=== PATIENT | male | born 1990 | race Caucasian/White ===

== ENCOUNTER 2017-02-02 08:09 | Emergency (ER) | payer OTHER ==
[~2017-02-02] VITALS: Wt 124.7 kg
[~2017-02-02 08:09] MED LIST: ACIPHEX20 MG PO; AMOXICILLIN500 MG PO; AMOXIL500 MG PO; ANAPROX DS550 MG PO; ATARAX25 MG PO; CLARITIN10 MG PO; CORDROL20 MG PO; FLAGYL500 MG PO; FLEXERIL5 MG PO; FLOMAX0.4 MG PO; HYDROCODONE BIT1 T11 PO; KEFLEX500 M1 PO; KEFLEX500 MG PO; KETOROLAC10 MG PO; LEVAQUIN750 MG PO; LIDEX 0.05% CRE15 GM T; LIDEX0.05% T; MEDROL DOSEPAK4 MG PO; MOTRIN400 MG PO; MOTRIN800 MG PO; NKHM; NORCO 5-325 TA1 EACH PO; PEPCID20 MG PO; PREDNICOT20 MG PO; PREDNISONE20 M1 PO; PREDNISONE20 MG PO; ROBITUSSIN-AC 160 ML PO; TRAMADOL HCL50 MG PO; VIBRAMYCIN100 MG PO; VICODIN 500 MG-1 TAB PO; ZITHROMAX Z PA250 MG PO; ZOFRAN ODT4 MG SL; ZOFRAN4 MG PO; Zofran4 MG PO
[2017-02-02 08:13] VITALS: BP 132/60
[2017-02-02] MEDS ORDERED: Motrin,Rufen800 MG PO (09:26)
[2017-02-02] MEDS ORDERED: HYDROCODONE BIT1 T11 PO (09:26)
== END 2017-02-02 09:34 | disposition home or self-care (01) ==
LOC: ED 08:09
DX: S46.912A Strain of unspecified muscle, fascia and tendon at shoulder and upper arm level, left arm, initial encounter (principal); F17.200 Nicotine dependence, unspecified, uncomplicated; W22.8XXA Striking against or struck by other objects, initial encounter; Y93.89 Activity, other specified; Y92.89 Other specified places as the place of occurrence of the external cause; Y99.8 Other external cause status

== ENCOUNTER 2017-06-07 00:32 | Emergency (ER) | payer OTHER ==
[~2017-06-07] VITALS: Ht 172.7 cm; Wt 133.4 kg
[~2017-06-07 00:32] MED LIST changes: +Motrin,Rufen800 MG PO
[2017-06-07 00:39] VITALS: BP 145/86
[2017-06-07 01:06] LABS: BASO % 0.3 % (0.0-1.0); EOS # 0.4 10*3/uL (0.0-0.4); EOS % 3.5 % (1.0-4.0); HEMATOCRIT 39.8 % (42.0-52.0); HEMOGLOBIN 12.9 g/dl (14.0-18.0); MEAN CELL VOLUME 81.2 fl (80.0-94.0); MEAN CORPUSCULAR HGB 26.3 pg (27.0-31.0); MEAN CORPUSCULAR HGB CONC 32.4 g/dl (33.0-37.0); MEAN PLATELET VOLUME 9.7 fl (9.6-12.3); MONO % 7.9 % (3.0-9.0); NEUT # 7.6 10*3/uL (2.3-7.9); PLATELET COUNT AUTOMATED 257 10*3/uL (130-400); RED CELL DISTRI WIDTH 14.2 % (0-14.5); WHITE BLOOD COUNT 12.1 10*3/uL (4.8-10.8)
[2017-06-07 01:21] LABS: ALBUMIN 3.3 gm/dl (3.1-4.5); ALKALINE PHOSPHATASE 99 U/L (45-117); BILIRUBIN, TOTAL 0.2 mg/dl (0.2-1.0); BUN 9 mg/dl (7-24); C-REACTIVE PROTEIN 1.66 MG/DL (0-0.3); CARBON DIOXIDE 25 mmol/L (21-32); CHLORIDE 108 mmol/L (98-107); EST GLOM FILT AFRICAN AMERICAN > 60 ml/min; GLUCOSE 105 mg/dL (65-99); MAGNESIUM 1.9 mg/dL (1.5-2.1); POTASSIUM 3.4 mmol/L (3.5-5.1); SGOT/AST 13 IU/L (3-35); SGPT/ALT 19 U/L (12-78); SODIUM 141 mmol/L (136-145); TOTAL PROTEIN 7.2 gm/dL (6.4-8.2); TROPONIN I < 0.015 ng/ml (<0.045)
[2017-06-07] MEDS ORDERED: AMOXICILLIN500 M2 PO (03:22)
[2017-06-07] MEDS ORDERED: PRILOSEC20 M1 PO (03:22)
[2017-06-07] MEDS ORDERED: ZOFRAN ODT4 MG SL (03:22)
== END 2017-06-07 04:08 | disposition home or self-care (01) ==
LOC: ED 00:32
PROVIDERS: Emergency Medicine Emergency Medical Services
DX: K21.9 Gastro-esophageal reflux disease without esophagitis (principal); J02.9 Acute pharyngitis, unspecified; F17.200 Nicotine dependence, unspecified, uncomplicated; Z98.890 Other specified postprocedural states; Z90.49 Acquired absence of other specified parts of digestive tract

== ENCOUNTER 2017-06-11 21:55 | Emergency (ER) | payer OTHER ==
[~2017-06-11] VITALS: Ht 172.7 cm; Wt 126.6 kg
[~2017-06-11 21:55] MED LIST changes: +AMOXICILLIN500 M2 PO; +PRILOSEC20 M1 PO
[2017-06-11 21:59] VITALS: BP 135/68
[2017-06-11 22:29] LABS: BASO % 0.3 % (0.0-1.0); EOS # 0.3 10*3/uL (0.0-0.4); EOS % 2.4 % (1.0-4.0); HEMATOCRIT 41.1 % (42.0-52.0); HEMOGLOBIN 13.3 g/dl (14.0-18.0); LYMPH # 2.7 10*3/uL (1.3-4.4); LYMPH % 22.4 % (27.0-41.0); MEAN CELL VOLUME 81.1 fl (80.0-94.0); MEAN CORPUSCULAR HGB 26.2 pg (27.0-31.0); MEAN CORPUSCULAR HGB CONC 32.4 g/dl (33.0-37.0); MEAN PLATELET VOLUME 9.5 fl (9.6-12.3); MONO # 0.7 10*3/uL (0.1-1.0); MONO % 6.1 % (3.0-9.0); NEUT # 8.2 10*3/uL (2.3-7.9); NEUT % 68.6 % (47.0-73.0); PLATELET COUNT AUTOMATED 253 10*3/uL (130-400); RED BLOOD COUNT 5.07 10*6/uL (4.50-5.90); RED CELL DISTRI WIDTH 14.1 % (0-14.5)
== END 2017-06-12 00:17 | disposition home or self-care (01) ==
LOC: ED 21:55
PROVIDERS: Physician Assistant
DX: B34.9 Viral infection, unspecified (principal); K21.9 Gastro-esophageal reflux disease without esophagitis; R42 Dizziness and giddiness; F17.200 Nicotine dependence, unspecified, uncomplicated

== ENCOUNTER 2017-06-24 02:04 | Emergency (ER) | payer OTHER ==
[~2017-06-24] VITALS: Ht 172.7 cm; Wt 126.6 kg
[2017-06-24 02:11] VITALS: BP 153/75
[2017-06-24] MEDS ORDERED: AVPAK AZITHROM250 M1 PO (03:17)
== END 2017-06-24 03:32 | disposition home or self-care (01) ==
LOC: ED 02:04
DX: J06.9 Acute upper respiratory infection, unspecified (principal); K21.9 Gastro-esophageal reflux disease without esophagitis; F17.200 Nicotine dependence, unspecified, uncomplicated

== ENCOUNTER 2017-07-20 16:44 | Emergency (ER) | payer OTHER ==
[~2017-07-20] VITALS: Wt 122.0 kg
[~2017-07-20 16:44] MED LIST changes: +AVPAK AZITHROM250 M1 PO
[2017-07-20 16:50] VITALS: BP 126/62
[2017-07-20] MEDS ORDERED: PREDNISONE10 MG PO (16:52)
== END 2017-07-20 17:04 | disposition home or self-care (01) ==
LOC: ED 16:44
DX: L30.9 Dermatitis, unspecified (principal); R03.0 Elevated blood-pressure reading, without diagnosis of hypertension; K21.9 Gastro-esophageal reflux disease without esophagitis; F17.200 Nicotine dependence, unspecified, uncomplicated

== ENCOUNTER → 2017-07-27 | Outpatient (CLI) | payer OTHER ==
[~2017-07-27] MED LIST changes: +PREDNISONE10 MG PO
== END | disposition home or self-care (01) ==
LOC: CT 13:24
DX: K43.2 Incisional hernia without obstruction or gangrene (principal)

== ENCOUNTER → 2017-08-03 | Outpatient (CLI) | payer OTHER ==
[~2017-08-03] MED LIST changes: +LORCET 5-325 M1 EACH PO
[2017-08-03 09:29] LABS: BASO # 0.1 10*3/uL (0.0-0.1); BASO % 0.6 % (0.0-1.0); EOS # 0.4 10*3/uL (0.0-0.4); EOS % 4.4 % (1.0-4.0); HEMATOCRIT 41.6 % (42.0-52.0); HEMOGLOBIN 13.7 g/dl (14.0-18.0); LYMPH # 2.1 10*3/uL (1.3-4.4); LYMPH % 21.8 % (27.0-41.0); MEAN CELL VOLUME 80.2 fl (80.0-94.0); MEAN CORPUSCULAR HGB 26.4 pg (27.0-31.0); MEAN CORPUSCULAR HGB CONC 32.9 g/dl (33.0-37.0); MEAN PLATELET VOLUME 10.3 fl (9.6-12.3); MONO # 0.6 10*3/uL (0.1-1.0); MONO % 6.3 % (3.0-9.0); NEUT # 6.3 10*3/uL (2.3-7.9); NEUT % 66.5 % (47.0-73.0); PLATELET COUNT AUTOMATED 233 10*3/uL (130-400); RED BLOOD COUNT 5.19 10*6/uL (4.50-5.90); RED CELL DISTRI WIDTH 14.2 % (0-14.5); WHITE BLOOD COUNT 9.4 10*3/uL (4.8-10.8)
[2017-08-03 09:30] LABS: BILIRUBIN NEGATIVE (NEGATIVE); BLOOD NEGATIVE (NEGATIVE); CLARITY CLEAR (CLEAR); COLOR YELLOW (YELLOW); GLUCOSE NEGATIVE (NEGATIVE); KETONE NEGATIVE (NEGATIVE); LEUKO ESTERASE NEGATIVE (NEGATIVE); NITRITE NEGATIVE (NEGATIVE); SPECIFIC GRAVITY 1.025 (1.005-1.030)
[2017-08-03 09:47] LABS: MUCOUS 1+
[2017-08-03 09:48] LABS: EPITHELIAL CELLS 0-2; RBC 0-2 rbc/hpf (0-2); WBC 0-2 wbc/hpf (0-5)
[2017-08-03 09:54] LABS: BUN 12 mg/dl (7-24); CHLORIDE 106 mmol/L (98-107); CREATININE 1.07 mg/dL (0.70-1.30); POTASSIUM 3.8 mmol/L (3.5-5.1); SODIUM 140 mmol/L (136-145)
[2017-08-03 10:05] LABS: ACT PARTIAL THROMBO TIME 22.1 SECONDS (20.8-31.5)
== END | disposition home or self-care (01) ==
LOC: LAB 08:25
PROVIDERS: Family Medicine
DX: K43.9 Ventral hernia without obstruction or gangrene (principal); R79.1 Abnormal coagulation profile

== ENCOUNTER → 2017-08-09 | Day surgery (SDC) | payer OTHER ==
[~2017-08-09] VITALS: Ht 172.7 cm; Wt 134.7 kg
[2017-08-09] VITALS (9 sets, daily range): BP systolic 104–125; BP diastolic 50–67
[~2017-08-09] MED LIST changes: +PERCOCET 5-3251 EACH PO
--- NOTE | ~2017-08-09 | O ---
[place], [place] OPERATIVE NOTE NAME: STEPHANIE ERVIN [facility] #: [id number] UNIT #: [id number] ROOM: DOCTOR: DAVID GIBSON MD BIRTHDATE: [birth year] DOS: 08/09/2017 PREOPERATIVE DIAGNOSIS: Recurrent incisional hernia. POSTOPERATIVE DIAGNOSIS: Recurrent incisional hernia. PROCEDURE: Repair of recurrent incisional hernia with mesh (Prolene, 3 x 6 inches) SURGEON: David Gibson MD COATER: MS3. ANESTHESIA: GET. INDICATIONS: This is a 27-year-old gentleman with a history of recurrent ventral hernia, who is here for the above-mentioned procedure. The procedure and its complications explained to the patient in detail preoperatively. Complications that were discussed included but were not limited to bleeding, infection, hematoma/seroma/abscess formation, biloma formation, prolonged postoperative pain, damage to underlying vital structures and recurrence. He agreed to proceed. DESCRIPTION OF PROCEDURE: After identifying the patient, the patient was brought to the operating suite and laid in the supine position. After induction of general anesthesia, the parts were painted and draped in the usual sterile fashion and a timeout procedure was called. The previously placed midline incision was extended on each side. The hernial sac was entered and from the surrounding subcutaneous tissue with the help of blunt and sharp dissection. After the entire hernial sac was excised away from the edges of the fascia, the adhesions between the omentum and the fascia were taken down until the entire fascia was clear of adhesions. At this point, the fascial defect was approximated with the help of interrupted nylon #3 sutures. Thereafter, the fascia was from the overlying subcutaneous tissue with the help of electrocautery and a 3 x 6 mesh was placed over the repair and sutured to the fascia underlying the mesh with the help of 3-0 Prolene in an interrupted fashion. Thereafter, irrigation was used to irrigate the operative field. The subcutaneous tissue was approximated in 2 layers with the help of 0 Vicryl and 3-0 Vicryl in an interrupted fashion. The edges of the skin were infiltrated with 1% plain lidocaine and approximated with the help of edvni. Dressing was placed and a binder was placed over that. The patient tolerated the procedure well. There were no complications. Dr. David Gibson, the attending surgeon, was present throughout the operating case. The patient was extubated uneventfully and brought back to the recovery room in a stable fashion. [place], [place] OPERATIVE NOTE NAME: STEPHANIE ERVIN UNIT #: [id number] ROOM: DOCTOR: DAVID GIBSON MD BIRTHDATE: [birth year] David Gibson MD CM:OPRECORD:OPERATIVE NOTE [id number] DAVID GIBSON MD 08/09/17 1535 interface
== END | disposition home or self-care (01) ==
LOC: SDC 08-03 08:45
DX: K43.2 Incisional hernia without obstruction or gangrene (principal); I10 Essential (primary) hypertension; K21.9 Gastro-esophageal reflux disease without esophagitis; F17.210 Nicotine dependence, cigarettes, uncomplicated; Z98.890 Other specified postprocedural states

== ENCOUNTER 2017-08-10 08:39 | Inpatient (IN) | payer OTHER ==
[~2017-08-10] VITALS: Ht 172.7 cm; Wt 134.5 kg
[2017-08-10 08:42] VITALS: BP 123/67
[2017-08-10 09:12] LABS: HEMATOCRIT 42.5 % (42.0-52.0); HEMOGLOBIN 14.1 g/dl (14.0-18.0); MEAN CELL VOLUME 80.8 fl (80.0-94.0); MEAN CORPUSCULAR HGB 26.8 pg (27.0-31.0); MEAN CORPUSCULAR HGB CONC 33.2 g/dl (33.0-37.0); MEAN PLATELET VOLUME 9.6 fl (9.6-12.3); PLATELET COUNT AUTOMATED 384 10*3/uL (130-400); RED BLOOD COUNT 5.26 10*6/uL (4.50-5.90); RED CELL DISTRI WIDTH 14.1 % (0-14.5); WHITE BLOOD COUNT 26.6 10*3/uL (4.8-10.8)
[2017-08-10 09:31] LABS: PLATELET SUFFICIENCY NORMAL (NORMAL); TOTAL CELLS COUNTED 100 #CELLS
[2017-08-10 09:35] LABS: ALBUMIN 3.6 gm/dl (3.1-4.5); ALKALINE PHOSPHATASE 115 U/L (45-117); BUN 12 mg/dl (7-24); CHLORIDE 100 mmol/L (98-107); CREATININE 1.16 mg/dL (0.70-1.30); LIPASE 65 U/L (73-393); POTASSIUM 3.6 mmol/L (3.5-5.1); SGOT/AST 29 IU/L (3-35); SGPT/ALT 47 U/L (12-78); SODIUM 135 mmol/L (136-145); TOTAL PROTEIN 8.1 gm/dL (6.4-8.2)
--- NOTE | 2017-08-10 10:00 | NUR ---
Time: 999 A 27 year old MALE admitted to under services of DR. NALDO QUIROZ,MARII. Pt. arrived via ambulatory from ER. Chief complaint: PAIN AND NAUSEA S/P HERNIA REPAIR. GILBERTO LOZADA
--- NOTE | 2017-08-10 10:01 | NUR ---
PT STABLE AND TRANSPORTED TO INPATIENT ROOM WITHOUT DIFFICULTY.
[2017-08-10 10:09] VITALS: BP 150/96
--- NOTE | 2017-08-10 10:35 | NUR ---
PT REQUESTING SOMETHING TO DRINK, DR HITCHCOCK STATES OK FOR CLEAR LIQUIDS.
[2017-08-10 12:00] VITALS: BP 137/91
--- NOTE | 2017-08-10 12:00 | NUR ---
ABDOMINAL BINDER APPLIED AT THIS TIME. PT SURGICAL INCISION NOT VISUALIZED ON ADMISSION, THE ORDERS ARE NOT TO BE REMOVED UNTIL POD #2 WHICH WILL BE 08/11/17.
--- NOTE | 2017-08-10 12:28 | NUR ---
DR HITCHCOCK NOTIFIED OF CRITICAL LACTIC ACID OF 3.1.
--- NOTE | 2017-08-10 13:40 | NUR ---
DR HITCHCOCK NOTIFIED OF PT'S CONTINUED NAUSEA DESPITE REGLAN, ORDER RECEIVED FOR PHENERGAN IV 25MG Q6.
--- NOTE | 2017-08-10 15:21 | NUR ---
MEDICATED WITH PHENERGAN PER PRN ORDER FOR COMPLAINTS OF NAUSEA. WILL MONITOR FOR EFFECTIVENESS.
[2017-08-10 16:00] VITALS: BP 146/89
--- NOTE | 2017-08-10 17:00 | NUR ---
PT COMPLAINING OF CONTINUED ABDOMINAL PAIN AND NAUSEA. SCHEDULED MEDSICATIONS ADMINISTERED.
[2017-08-10 18:37] LABS: BILIRUBIN NEGATIVE (NEGATIVE); BLOOD NEGATIVE (NEGATIVE); CLARITY CLEAR (CLEAR); COLOR YELLOW (YELLOW); GLUCOSE NEGATIVE (NEGATIVE); KETONE NEGATIVE (NEGATIVE); LEUKO ESTERASE NEGATIVE (NEGATIVE); NITRITE NEGATIVE (NEGATIVE); SPECIFIC GRAVITY 1.025 (1.005-1.030); UROBILINOGEN 0.2 E.U./dl (0.2-1.0)
[2017-08-10 18:44] LABS: RBC 0-2 rbc/hpf (0-2)
[2017-08-10 18:45] LABS: BACTERIA 1+; EPITHELIAL CELLS 0-2; MUCOUS TRACE
[2017-08-10 20:00] VITALS: BP 155/93
--- NOTE | 2017-08-10 20:00 | NUR ---
DR. HITCHCOCK CALLED REGARDING PATIENT REQUEST FOR ADDITIONAL PAIN MEDICATION. NO NEW ORDERS RECEIVED
--- NOTE | 2017-08-10 21:43 | NUR ---
RAULITON MEDICATED WITH PHENERGAN PER PRN ORDER FOR C/O NAUSEA. SEE EMAR. REINFORCED USE OF CALL LIGHT.
--- NOTE | 2017-08-10 23:06 | NUR ---
DR. HITCHCOCK CALLED REGARDING PATIENT HAVING 2 LARGE EMESIS OF YELL GREEN MUCOUS WITH TINY AMT OF RED COLORED STRANDS THROUGHOUT.
[2017-08-11] VITALS: BP 143/77
--- NOTE | 2017-08-11 02:12 | NUR ---
PATIENT MEDICATED WITH ZOFRAN PER PRN ORDER FOR C/O NAUSEA. SEE EMAR. REINFORCED USE OF CALL LIGHT.
--- NOTE | 2017-08-11 03:38 | NUR ---
PATIENTMEDICATED WITH PHENERGAN PER PRN ORDER FOR C/O NAUSEA. SEE EMAR. REINFORCED USE OF CALL LIGHT.
--- NOTE | 2017-08-11 04:57 | NUR ---
PATIENT RESTING QUIETLY. NO FURTHER C/O VOICED
[2017-08-11 06:03] LABS: BASO # 0.1 10*3/uL (0.0-0.1); BASO % 0.3 % (0.0-1.0); EOS # 0.6 10*3/uL (0.0-0.4); EOS % 2.8 % (1.0-4.0); HEMATOCRIT 41.6 % (42.0-52.0); HEMOGLOBIN 13.8 g/dl (14.0-18.0); LYMPH # 1.5 10*3/uL (1.3-4.4); LYMPH % 7.3 % (27.0-41.0); MEAN CELL VOLUME 80.6 fl (80.0-94.0); MEAN CORPUSCULAR HGB 26.7 pg (27.0-31.0); MEAN CORPUSCULAR HGB CONC 33.2 g/dl (33.0-37.0); MEAN PLATELET VOLUME 9.5 fl (9.6-12.3); MONO # 1.4 10*3/uL (0.1-1.0); MONO % 7.1 % (3.0-9.0); NEUT # 16.5 10*3/uL (2.3-7.9); PLATELET COUNT AUTOMATED 323 10*3/uL (130-400); RED BLOOD COUNT 5.16 10*6/uL (4.50-5.90); RED CELL DISTRI WIDTH 14.3 % (0-14.5); WHITE BLOOD COUNT 20.1 10*3/uL (4.8-10.8)
[2017-08-11 06:45] LABS: ALBUMIN 3.4 gm/dl (3.1-4.5); ALKALINE PHOSPHATASE 95 U/L (45-117); BUN 9 mg/dl (7-24); CHLORIDE 102 mmol/L (98-107); CREATININE 0.91 mg/dL (0.70-1.30); POTASSIUM 3.6 mmol/L (3.5-5.1); SGOT/AST 15 IU/L (3-35); SGPT/ALT 35 U/L (12-78); SODIUM 140 mmol/L (136-145); TOTAL PROTEIN 7.2 gm/dL (6.4-8.2)
--- NOTE | 2017-08-11 07:02 | NUR ---
DR. HITCHCOCK CALLED WITH RESULT OF CMP PER DR. HITCHCOCK REQUEST.
[2017-08-11 08:00] VITALS: BP 128/78
--- NOTE | 2017-08-11 08:43 | NUR ---
IN TO SEE PT, PT REQUESTING SOMETHING FOR NAUSEA, NO EMESIS NOTED. STATES NO EMESIS SINCE LAST NIGHT. PT'S ABD BINDER FOUND ON THE FLOOR, QUESTIONED PT TO WHY HE WASN'T WEARING IT. STATES LAST NIGHT HE WAS TOO UNCOMFORTABLE. EDUCATED PT ON IMPORTANCE OF WEARING IT AT ALL TIMES AND THE PURPOSE BEHIND IT. PT VOICED UNDERSTANDING, STATES HE WILL TRY IT LATER. MEDICATED WITH ZOFRAN PER PRN ORDER. PT STATES HE IS STILL HAVING ABDOMINAL TENDERNESS. SOME DISTENTION NOTED TO RIGHT OF UMBILLICUS, DRESSING DRY & INTACT, HYPO BS, PT STATES HE IS NOT PASSING GAS. ENCOURAGED PT TO GET UP AND AMBULATE. PT STATES HE CAN'T AT THIS TIME, EDUCATED ON IMPORTANCE.
--- NOTE | 2017-08-11 08:54 | NUR ---
DR HITCHCOCK UPDATED ON PT'S STATUS, CONTINUED EMESIS, NO BOWEL SOUNDS, ABDOMINAL DISTENTION. ORDERS RECEIVED TO KEEP PT NPO AND PLACE NG TUBE,
--- NOTE | 2017-08-11 09:24 | NUR ---
NG TUBE PLACED PER ORDER TO LOW INTERMITTENT WALL SUCTION. NGT PLACED IN RIGHT NARE, PT TOLERATED MODERATELY WELL WITH MILD NAUSEA WITH TUBE PLACEMENT. GREEN CONTENTS RETURNED IMMEDIATELY. PT RESTING, NO DISTRESS AT THIS TIME. PT IS UNCOMFORTABLE, EXPLAINED THAT IT WILL FEEL FOREIGN INITIALLY. CHEST X-RAY ORDERED FOR CONFIRMATION OF PROPER PLACEMENT.
--- NOTE | 2017-08-11 11:15 | NUR ---
RADIOLOGY HERE FOR REPEAT CXR FOR NG TUBE PLACEMEMNT. NG TUBE CURRENTLY TO LIS AND HAVING GREEN OUTPUT. PT STILL COMPLAINING OF SOME DISCOMFORT AND NAUSEA. SCHEDULED MEDICATIONS GIVEN AT THIS TIME. UPDATED PT WHEN HE IS FEELING A LITTLE MORE COMFORTABLE WE WILL HAVE TO REMOVE HIS DRESSING AND ASSESS HIS INCISION. PT ASKING WHEN DR HITCHCOCK IS COMING IN TO SEE HIM, HE DOESNT WANT THE DRESSING REMOVED UNTIL HE SEE'S HIM. UPDATED THAT WE DON'T HAVE AN EXACT TIME OF WHEN THE DOCTOR WILL BE IN.
--- NOTE | 2017-08-11 11:59 | NUR ---
PT CALLED ME INTO ROOM, PT VERY UPSET STATING HE WANTS TO SPEAK WITH DR HITCHCOCK IMMEDIATELY. CALLED DR HITCHCOCK AT THIS TIME, UPDATED HIM THAT NG TUBE HAS BEEN PLACED, 200ML OF GREEN OUTPUT RETURNED, BUT PT IS STILL EXTREMELY UNCOMFORTABLE AND NAUSEATED AND IS DEMANDING TO SEE HIM. STATES HE WILL BE IN IN APPROXIMATELY 2-3 HOURS.
[2017-08-11 12:00] VITALS: BP 137/79
--- NOTE | 2017-08-11 13:06 | NUR ---
PT CALLED ME INTO ROOM, VERY UPSET STATING HE CAN'T WAIT ANY LONGER, STATES THIS IS RIDICULOUS THAT HE HASN'T SEEN THE DOCTOR AND REFUSES TO STAY ANY LONGER, HE WANTS HIS BG TUBE OUT NOW AND WANTS HIS AMA FORM. TRIED EXPLAINING THE RISKS TO PT, STATES HE'S AWARE OF THE RISKS AND HE'LL GO SOMEWHERE ELSE IF HE NEEDS TO. PT SIGNED AMA. DR HITCHCOCK AND NURSING LAMINATOR HAND NOTIFIED.
== END 2017-08-11 13:21 | disposition left against medical advice (07) | DRG 948 ==
LOC: ED 08:39 → 5E 09:28 → EDHOLD 09:28 → 5E 09:37
PROVIDERS: Emergency Medicine; ADMIT Surgery
DX: G89.18 Other acute postprocedural pain (principal); E66.01 Morbid (severe) obesity due to excess calories; Z68.42 Body mass index [BMI] 45.0-49.9, adult; K21.9 Gastro-esophageal reflux disease without esophagitis; R10.9 Unspecified abdominal pain; Z53.21 Procedure and treatment not carried out due to patient leaving prior to being seen by health care provider; Z91.012 Allergy to eggs; Z79.899 Other long term (current) drug therapy; Z90.49 Acquired absence of other specified parts of digestive tract

== ENCOUNTER 2017-08-24 23:44 | Inpatient (IN) | payer OTHER ==
[~2017-08-24] VITALS: Ht 172.7 cm; Wt 142.0 kg
--- NOTE | ~2017-08-24 | O ---
[place], [place] OPERATIVE NOTE NAME: STEPHANIE ERVIN [facility] #: [id number] UNIT #: [id number] ROOM: [facility] DOCTOR: DAVID GIBSON MD BIRTHDATE: [birth year] DOS: 08/25/2017 PREOPERATIVE DIAGNOSIS: Possible wound/mesh infection, recurrent ventral hernia. POSTOPERATIVE DIAGNOSIS: Possible wound/mesh infection, recurrent ventral hernia. PROCEDURE: Repair of ventral hernia and removal of mesh. SURGEON: David Gibson MD PACK WORKER SUPERVISOR: NATALIYA. ANESTHESIA: General with endotracheal intubation. INDICATIONS: This is a 27-year-old gentleman who underwent ventral hernia repair with mesh on 08/09, came into the Emergency Room last night with a history of drainage from his incision site as well as low-grade fevers. CT scan showed a possible abscess and also a recurrence of the ventral hernia. It was decided to take the patient to the operating room for the above-mentioned procedure. The procedure and its complications explained to the patient in detail preoperatively. Complications that were discussed included but were not limited to bleeding, infection, recurrence, prolonged postoperative pain, and damage to underlying vital structures. He agreed to proceed. DESCRIPTION OF PROCEDURE: After identifying the patient, the patient was brought to the operating suite and laid in the supine position. After induction of general anesthesia, the parts were then painted and draped in the usual sterile fashion. A time-out procedure was called. The previous staple line was opened. The edvin were removed. A specimen of the underlying fluid was sent for culture and sensitivity. Thereafter, the entire incision was opened and there was found to be a recurrence of the ventral hernia with a small loop of small intestine as the content as well as the mesh that was in place around recurrence. The mesh was removed and sent for histopathological diagnosis. Saline was used for irrigation and the previously placed fascial sutures were also removed. The fascial edges were freshened by excising redundant and obviously necrotic tissue. The incision was also extended superiorly and inferiorly and the skin edges were excised including the umbilicus and sent for histopathological diagnosis. Thereafter, the bowel was inspected that was in the hernial sac and there was small serosal tear superiorly, which was fixed with interrupted 3-0 silk. After the entire small bowel was run, it was allowed to retract back into the peritoneal cavity. At this point, 4 retention sutures were placed and these were of #2 Prolene. The fascial defect itself was then approximated with the help of looped #1 PDS in a running fashion. Thereafter, the subcutaneous tissue was irrigated and a 15-[place]izen [place] round Mikey-Lane drain was placed for the drainage of the subcutaneous tissue. The subcutaneous tissue itself was approximated with the help of 0 Vicryl in a running fashion. The skin edges were infiltrated with 1% plain lidocaine and approximated with the help of edvin. The stay sutures were tied over bridges made of red rubber [place], [place] OPERATIVE NOTE NAME: STEPHANIE ERVIN UNIT #: [id number] ROOM: [facility] DOCTOR: DAVID GIBSON MD BIRTHDATE: [birth year] catheter and a dressing was placed. The patient tolerated the procedure well and was extubated uneventfully and brought back to the recovery room in stable fashion. There were no complications. Dr. David Gibson, the attending surgeon, was present throughout the operating case. Blood loss was approximately 300 mL. David Gibson MD CM:OPRECORD:OPERATIVE NOTE [id number] DAVID GIBSON MD 08/25/17 1407 interface
[2017-08-24 04:00] VITALS: BP 116/62
[2017-08-24 23:51] VITALS: BP 127/75
[2017-08-25] VITALS (12 sets, daily range): BP systolic 110–132; BP diastolic 59–81
[2017-08-25 00:27] LABS: BASO # 0.1 10*3/uL (0.0-0.1); BASO % 0.5 % (0.0-1.0); EOS % 7.3 % (1.0-4.0); HEMOGLOBIN 11.2 g/dl (14.0-18.0); LYMPH # 3.4 10*3/uL (1.3-4.4); LYMPH % 25.5 % (27.0-41.0); MEAN CELL VOLUME 80.2 fl (80.0-94.0); MEAN CORPUSCULAR HGB 26.4 pg (27.0-31.0); MEAN CORPUSCULAR HGB CONC 32.9 g/dl (33.0-37.0); MEAN PLATELET VOLUME 9.3 fl (9.6-12.3); MONO % 7.2 % (3.0-9.0); NEUT # 7.8 10*3/uL (2.3-7.9); NEUT % 58.4 % (47.0-73.0); PLATELET COUNT AUTOMATED 311 10*3/uL (130-400); RED BLOOD COUNT 4.24 10*6/uL (4.50-5.90); RED CELL DISTRI WIDTH 14.1 % (0-14.5); WHITE BLOOD COUNT 13.4 10*3/uL (4.8-10.8)
[2017-08-25 00:43] LABS: ALBUMIN 2.7 gm/dl (3.1-4.5); ALKALINE PHOSPHATASE 85 U/L (45-117); BUN 10 mg/dl (7-24); CHLORIDE 103 mmol/L (98-107); CREATININE 0.71 mg/dL (0.70-1.30); POTASSIUM 2.8 mmol/L (3.5-5.1); SGOT/AST 17 IU/L (3-35); SGPT/ALT 31 U/L (12-78); SODIUM 140 mmol/L (136-145); TOTAL PROTEIN 6.1 gm/dL (6.4-8.2)
[2017-08-25 00:53] LABS: TROPONIN I < 0.015 ng/ml (<0.045)
--- NOTE | 2017-08-25 03:06 | NUR ---
A 27, admitted to , under the services of BANDAR Ha DO with a diagnosis of VENTRAL HERNIA, SEPSIS, SEROMA, HYPOKALEMIA. Chief complaint is HERNIA REPAIR 08/09/[address] HITCHCOCK. EVERY OTHER STAPLE REMOVED LAST WK. WOUND DRAINING HEAVILY THIS EVENING. Patient arrived via bed from ER. Monitor applied. Initial assessment completed. Vital signs taken and recorded. BANDAR HA DO / DR GUAMAN notified of admission to the unit. Orders received. See assessment for past medical history, medications and allergies. Patient and/or family oriented to unit. [facility] visitation policy reviewed. Clothing/patient valuable form completed. ABD INCISION WITH 14 DEJA REMAINING, PICS TAKEN OCTAVIO JOHN
--- NOTE | 2017-08-25 04:36 | NUR ---
DR. HITCHCOCK NOTIFIED OF CONSULT VIA ER.
[2017-08-25 06:07] LABS: BASO # 0.1 10*3/uL (0.0-0.1); BASO % 0.4 % (0.0-1.0); EOS % 8.3 % (1.0-4.0); HEMATOCRIT 32.7 % (42.0-52.0); HEMOGLOBIN 10.8 g/dl (14.0-18.0); LYMPH # 3.3 10*3/uL (1.3-4.4); LYMPH % 28.8 % (27.0-41.0); MEAN CELL VOLUME 81.5 fl (80.0-94.0); MEAN CORPUSCULAR HGB 26.9 pg (27.0-31.0); MEAN PLATELET VOLUME 9.2 fl (9.6-12.3); MONO # 0.9 10*3/uL (0.1-1.0); MONO % 7.7 % (3.0-9.0); NEUT # 6.1 10*3/uL (2.3-7.9); NEUT % 53.4 % (47.0-73.0); PLATELET COUNT AUTOMATED 288 10*3/uL (130-400); RED BLOOD COUNT 4.01 10*6/uL (4.50-5.90); RED CELL DISTRI WIDTH 14.3 % (0-14.5); WHITE BLOOD COUNT 11.5 10*3/uL (4.8-10.8)
[2017-08-25 06:15] LABS: BUN 10 mg/dl (7-24); CHLORIDE 105 mmol/L (98-107); CHOLESTEROL 116 mg/dL (<200); CREATININE 0.72 mg/dL (0.70-1.30); FREE T4 1.25 ng/dl (0.76-1.46); HDL CHOLESTEROL 35 mg/dl (40-60); LDL CHOLESTEROL 58 mg/dL (9-159); PHOSPHOROUS 3.3 mg/dL (2.5-4.9); POTASSIUM 3.3 mmol/L (3.5-5.1); SODIUM 142 mmol/L (136-145); TRIGLYCERIDES 115 mg/dl (<150); VLDL CHOLESTEROL 23 mg/dL (6-40)
[2017-08-25 06:17] LABS: TROPONIN I < 0.015 ng/ml (<0.045)
--- NOTE | 2017-08-25 08:15 | NUR ---
Patient in surgery. Unable to assess at this time.
--- NOTE | 2017-08-25 08:34 | NUR ---
SPOKE TO DR MARINELLI AND ORDER RECIEVED. WANTS CALL BACK WITH ECHO RESULTS.
--- NOTE | 2017-08-25 13:05 | NUR ---
RETURNED FROM OR, REPORT RECIEVED MELISSA CAMPOS RN.ASSESSMENT COMPLETED. RESPS EASY ON 2LNC, PT C/O PAIN TO ABD,07/31. PT RETURNED WITH NG TO NARES. NOTIFIED DR HITCHCOCK THERE WAS NO ORDER AND ORDER RECIEVED. CXR ORDERED PER POLICY. AT BEDSIDE VOICES NO NEEDS.
--- NOTE | 2017-08-25 13:34 | NUR ---
DILAUDID 2 MG GIVEN PER MAR FOR C/O ABD PAIN , 07/31. ASSESSED SURGICAL INCISION AT THIS TIME. SAHIL DRAIN TO RLQ DRAINING 50 ML OF TOSCANO/PINKISH DRAINAGE. DRESSING TO MIDLINE ABDOMEN DRY AND INTACT. PT TOLERATED WELL. VOICES NO OTHER NEEDS AT BEDSIDE.
--- NOTE | 2017-08-25 15:05 | NUR ---
SHIFT DIRECTOR SPOKE TO DR HITCHCOCK AND READ CXR REPORT FOR NG PLACEMENT AND VERIFICATION RECIEVED PER DR HITCHCOCK . OK TO USE.
--- NOTE | 2017-08-25 19:48 | NUR ---
PT C/O ABDOMINAL PAIN. DILAUDID ADMINISTERED VIA IV AT THIS TIME. WILL MONITOR FOR EFFECTIVENESS. ABDOMEN DRESSING DRY AND IN TACT, NORMAL SALINE RUNNING PER PHYSICIAN ORDER. IV SITE PATENT, DRESSING DRY AND IN TACT. NO OTHER S/S OF DISTRESS AT THIS TIME. CALL LIGHT IN REACH.
--- NOTE | 2017-08-25 20:48 | NUR ---
DILAUDID EFFECTIVE. PT RESTING PEACEFULLY IN BED, CALL LIGHT IN REACH.
--- NOTE | 2017-08-25 22:15 | NUR ---
PT C/O ABDOMINAL PAIN. DILAUDID ADMINISTERED AT THIS TIME. WILL MONITOR FOR EFFECTIVENESS. NO OTHER S/S OF DISTRESS. CALL LIGHT IN REACH.
--- NOTE | 2017-08-25 23:01 | NUR ---
24 HR chart check completed.
--- NOTE | 2017-08-25 23:15 | NUR ---
DILAUDID EFFECTIVE. PT RESTING COMFORTABLY WITH EYES CLOSED. RESPIRATIONS EASY AND UNLABORED. NO S/S OF DISTRESS. CALL LIGHT IN REACH.
[2017-08-26] VITALS: BP 112/71; BP 121/59
--- NOTE | 2017-08-26 01:25 | NUR ---
PT C/O ABDOMINAL PAIN. DALAUDID ADMINISTERED VIA IV. WILL MONITOR FOR EFFECTIVENESS. NO OTHER S/S OF DISTRESS. ALL SAFETY MEASURES IN PLACE. DRESSING TO MID ABDOMEN DRY AND IN TACT. IV FLUIDS RUNNING PER ORDER. IV SITE PATENT AND DRY. CALL LIGHT IN REACH.
--- NOTE | 2017-08-26 03:54 | NUR ---
PT C/O ABDOMINAL PAIN. DILAUDID ADMINSITERED. WILL MONITOR FOR EFFECTIVENESS. CALL LIGHT IN REACH.
[2017-08-26 04:00] VITALS: BP 116/62; BP 122/84
--- NOTE | 2017-08-26 04:54 | NUR ---
DILAUDID EFFECTIVE. PT RESTING PEACEFULLY. RESPIRATIONS EASY AND UNLABORED. CALL LIGHT IN REACH.
--- NOTE | 2017-08-26 05:56 | NUR ---
PT C/O ABDOMINAL PAIN. DILAUDID ADMINSITERED VIA IV. IV ATB RUNNING WITH EASE AT THIS TIME. NG TUBE DRAINING GREEN FLUID, TUBE PATENT. 10 CC DRAINED FROM SAHIL DRAIN. NO OTHER COMPLAINTS VOICED AT THIS TIME. SCDS IN PLACE. RESPIRATIONS EASY AND UNLABORED. HR 85 PER CM. CALL LIGHT IN REACH.
[2017-08-26 05:58] LABS: BASO % 0.2 % (0.0-1.0); EOS # 0.1 10*3/uL (0.0-0.4); EOS % 0.3 % (1.0-4.0); HEMATOCRIT 34.9 % (42.0-52.0); HEMOGLOBIN 10.8 g/dl (14.0-18.0); LYMPH # 1.3 10*3/uL (1.3-4.4); LYMPH % 6.4 % (27.0-41.0); MEAN CELL VOLUME 83.9 fl (80.0-94.0); MEAN CORPUSCULAR HGB CONC 30.9 g/dl (33.0-37.0); MEAN PLATELET VOLUME 9.5 fl (9.6-12.3); MONO # 1.5 10*3/uL (0.1-1.0); MONO % 7.3 % (3.0-9.0); NEUT # 17.4 10*3/uL (2.3-7.9); PLATELET COUNT AUTOMATED 371 10*3/uL (130-400); RED BLOOD COUNT 4.16 10*6/uL (4.50-5.90); RED CELL DISTRI WIDTH 14.9 % (0-14.5); WHITE BLOOD COUNT 20.5 10*3/uL (4.8-10.8)
[2017-08-26 06:28] LABS: ALBUMIN 2.8 gm/dl (3.1-4.5); ALKALINE PHOSPHATASE 88 U/L (45-117); BUN 13 mg/dl (7-24); CHLORIDE 107 mmol/L (98-107); CREATININE 0.87 mg/dL (0.70-1.30); POTASSIUM 4.4 mmol/L (3.5-5.1); SGOT/AST 28 IU/L (3-35); SGPT/ALT 36 U/L (12-78); SODIUM 140 mmol/L (136-145); TOTAL PROTEIN 6.6 gm/dL (6.4-8.2)
--- NOTE | 2017-08-26 06:56 | NUR ---
DILAUDID EFFECTIVE. PT RESTING PEACEFULLY. CALL LIGHT IN REACH.
[2017-08-26 08:00] VITALS: BP 130/72
--- NOTE | 2017-08-26 08:09 | NUR ---
PT COMPLAINS OF PAIN IN ABDOMEN 04/30, DILAUDID GIVEN PER ORDER. SEE MAR. WILL MONITOR FOR EFFECTIVENESS
--- NOTE | 2017-08-26 08:50 | NUR ---
PT SLEEPING, DID NOT WAKE UP TO ASK ABOUT PAIN MEDICAION EFFECTIVENESS
--- NOTE | 2017-08-26 09:00 | NUR ---
EDUCATED ON IS. OBSERVED USE X1. PT STATES HE WILL "TRY TO DO LATER"
--- NOTE | 2017-08-26 10:55 | NUR ---
PT STATES ABDOMINAL PAINK 04/30. DILAUDID GIVEN. SEE DEC. WILL MONITOR FOR EFFECTIVENESS
--- NOTE | 2017-08-26 11:30 | NUR ---
STATES DILAUDID EFFECTIVE FOR PAIN. RESTING COMFORTABLY AT THIS TIME
[2017-08-26 12:00] VITALS: BP 137/84
--- NOTE | 2017-08-26 14:12 | NUR ---
PT GIVEN PRN IV DILAUDID FOR COMPLAINTS OF 8/10 ABD PAIN. WILL MONITOR EFFECTIVENESS.
--- NOTE | 2017-08-26 14:49 | NUR ---
DILAUDID EFFECTIVE FOR PAIN. PT STATES NO NEEDS AT THIS TIME
[2017-08-26 16:00] VITALS: BP 114/63; BP 145/92
--- NOTE | 2017-08-26 16:21 | NUR ---
PT STATES ABDOMINAL PAIN 05/31. DILAUDID GIVEN. SEE DEC. WILL MONITOR FOR EFFECTIVENESS
--- NOTE | 2017-08-26 17:00 | NUR ---
PT RESTING. STATES DILAUDID EFFECTIVE
--- NOTE | 2017-08-26 18:25 | NUR ---
COMPLAINS OF ABDOMINAL PAIN 04/30. DILAUDID GIVEN. SEE MAR.
[2017-08-26 20:00] VITALS: BP 136/80
--- NOTE | 2017-08-26 20:36 | NUR ---
Medicated with Dilaudid IV prn for post op abdominal pain rating 6/10. Will monitor effectiveness. Call light within reach.
--- NOTE | 2017-08-26 21:30 | NUR ---
Patient resting quietly in bed with eyes closed. Dilaudid effective. Will continue to monitor. Call light within reach.
--- NOTE | 2017-08-26 22:42 | NUR ---
Medicated with Dilaudid IV prn for post op abd.pain rating 6/10. Will monitor effectiveness. Call light within reach.
--- NOTE | 2017-08-26 23:30 | NUR ---
Patient resting in bed with eyes closed. Dilaudid effective. Will continue to monitor. Call light within reach.
[2017-08-27] VITALS: BP 121/59
--- NOTE | 2017-08-27 02:17 | NUR ---
PATIENT REQUESTED AND RECEIVED IV DILAUDID PER PRN ORDER FOR C/O ALL OVER ABDOMINAL PAIN 05/31. DILAUDID ADMINISTERED SLOWLY. WILL MONITOR EFFECTIVENESS. CALL LIGHT LEFT IN REACH.
--- NOTE | 2017-08-27 02:40 | NUR ---
24 HR chart check completed.
--- NOTE | 2017-08-27 03:00 | NUR ---
Patient resting quietly in bed with eyes closed. Dilaudid effective. Will continue to monitor. Call light within reach.
--- NOTE | 2017-08-27 05:26 | NUR ---
Medicated with Dilaudid IV prn for post op abd.pain rating /10. Will monitor effectiveness. Call light within reach.
[2017-08-27 06:03] LABS: BUN 15 mg/dl (7-24); CHLORIDE 106 mmol/L (98-107); CREATININE 0.82 mg/dL (0.70-1.30)
[2017-08-27 06:15] LABS: BASO # 0.1 10*3/uL (0.0-0.1); BASO % 0.4 % (0.0-1.0); EOS % 8.2 % (1.0-4.0); HEMATOCRIT 31.1 % (42.0-52.0); HEMOGLOBIN 9.5 g/dl (14.0-18.0); LYMPH # 2.1 10*3/uL (1.3-4.4); LYMPH % 16.2 % (27.0-41.0); MEAN CELL VOLUME 86.6 fl (80.0-94.0); MEAN CORPUSCULAR HGB 26.5 pg (27.0-31.0); MEAN CORPUSCULAR HGB CONC 30.5 g/dl (33.0-37.0); MEAN PLATELET VOLUME 9.5 fl (9.6-12.3); MONO % 7.9 % (3.0-9.0); NEUT # 8.5 10*3/uL (2.3-7.9); PLATELET COUNT AUTOMATED 310 10*3/uL (130-400); RED BLOOD COUNT 3.59 10*6/uL (4.50-5.90); RED CELL DISTRI WIDTH 15.3 % (0-14.5); WHITE BLOOD COUNT 12.6 10*3/uL (4.8-10.8)
[2017-08-27 06:18] LABS: SODIUM 144 mmol/L (136-145)
[2017-08-27 06:20] LABS: POTASSIUM 3.4 mmol/L (3.5-5.1)
--- NOTE | 2017-08-27 06:31 | NUR ---
Patient resting quietly in bed with eyes closed. Dilaudid effective. Will continue to monitor. Call light within reach.
[2017-08-27 08:00] VITALS: BP 138/84
--- NOTE | 2017-08-27 08:32 | NUR ---
DILAUDID 2 MG GIVEN FOR C/O ABD PAINM AT INCISION SITE,07/31.
--- NOTE | 2017-08-27 09:00 | NUR ---
Bus Driver in to talk to patient. Patient states lives at home with and children. There are few steps in the home. Physician: jael Pharmacy: [facility] Home health services: non e Patient's level of ADLs: INDEPENDENT Patient has working utilities: all working DME: none Follow-up physician's appointment after d/c: will be made by hospitalist nurse director upon discharge Does patient want to access PORTAL?: no Discharge plan discussed with patient, patient lives at home with and children, he is independent in adls and ambulation, patient states he will be going home when able and denies any home needs. JOY MARSHALL
--- NOTE | 2017-08-27 09:32 | NUR ---
This nurse was asked to evaluate patient abdomen wound. Patient stated he had a hernia repair on 08/09/17. He stated that he got sick and started vomiting he had to have surgery again on 08/24/17 and was because of fluid and to fix the hernia again. Post op dressing remains intact. No dressing change orders at this time. Willow COPE to get dressing change order from Dr. Gibson when he rounds today.
--- NOTE | 2017-08-27 10:46 | NUR ---
DILAUDID 2 MG GIVEN FOR C/O ABD PAIN AT SX INCISION SITE, 07/31.
--- NOTE | 2017-08-27 11:03 | NUR ---
DR HITCHCOCK ROUNDED, ORDERS RECIEVED.
[2017-08-27 12:00] VITALS: BP 134/78
--- NOTE | 2017-08-27 13:50 | NUR ---
DILAUDID 2 MG GIVEN FOR C/O OF ABD PAIN,07/31.
--- NOTE | 2017-08-27 15:01 | NUR ---
CXR COMPLETED AND NG WAS DISLODGED ATTEMPTED TO ADVANCE IT AND PT WAS UNABLE TO TOLERATE IT AND DISLODGED ENTIRE NG. REPLACED NG TO LEFT NARES THIS TIME WITHOUT DIFFICULTY ATTACHED TO CONTIUOUS SUCTION. DRAINING YELLOW GREENISH DRAINAGE.
--- NOTE | 2017-08-27 15:29 | NUR ---
DILAUDID 2 MG GIVEN FOR C/O ABD PAIN,07/31.
[2017-08-27 16:00] VITALS: BP 150/98
--- NOTE | 2017-08-27 16:05 | NUR ---
DRESSING CHANGE COMPLETE PER PHYSICIAN ORDER. PICTURES OBTAINED AND PT TOLERATED IT ALL WELL. VOICES NO NEEDS. CALL LIGHT IN REACH.
[2017-08-27 20:00] VITALS: BP 153/100
--- NOTE | 2017-08-27 20:16 | NUR ---
PATIENT RESTING IN BED WITH NO S/S OF DISTRESS. RESPS EASY AND REGULAR. BED IN LOWEST POSITION, CALL LIGHT IN REACH
--- NOTE | 2017-08-27 20:48 | NUR ---
PATIENT MEDICATED WITH PRN DILAUDID FOR C/O ABD PAIN RATED 9/10 ON A 0/10 PAIN SCALE
--- NOTE | 2017-08-27 21:40 | NUR ---
24 HR chart check completed.
--- NOTE | 2017-08-27 21:48 | NUR ---
MEDICATION NOT EFFECTIVE PER PATIENT. REQUESTING MORE PAIN MEDS
--- NOTE | 2017-08-27 23:31 | NUR ---
PRN DILAUDID GIVEN FOR PAIN RATED 9/10 ON A 0/10 PAIN SCALE
[2017-08-28] VITALS: BP 145/85
--- NOTE | 2017-08-28 01:02 | NUR ---
PATIENT RESTING IN BED WITH EYES CLOSED. RESPS EASY AND REGULAR. MEDICATION SEEMS EFFECTIVE
--- NOTE | 2017-08-28 02:45 | NUR ---
PATIENT RESTING IN BED WITH RESPS EASY AND REGULAR. BED IN LOWEST POSITION, CALL LIGHT IN REACH
--- NOTE | 2017-08-28 05:40 | NUR ---
PATIENT MEDICATED WITH PRN DILAUDID FOR PAIN RATED 9/10 ON A 0/10 PAIN SCALE.
[2017-08-28 06:40] LABS: BASO % 0.2 % (0.0-1.0); EOS # 0.8 10*3/uL (0.0-0.4); EOS % 6.3 % (1.0-4.0); HEMATOCRIT 29.8 % (42.0-52.0); HEMOGLOBIN 9.5 g/dl (14.0-18.0); LYMPH # 1.4 10*3/uL (1.3-4.4); LYMPH % 11.2 % (27.0-41.0); MEAN CORPUSCULAR HGB 26.1 pg (27.0-31.0); MEAN CORPUSCULAR HGB CONC 31.9 g/dl (33.0-37.0); MEAN PLATELET VOLUME 9.5 fl (9.6-12.3); MONO # 1.2 10*3/uL (0.1-1.0); MONO % 9.3 % (3.0-9.0); NEUT % 72.6 % (47.0-73.0); PLATELET COUNT AUTOMATED 287 10*3/uL (130-400); RED BLOOD COUNT 3.64 10*6/uL (4.50-5.90); RED CELL DISTRI WIDTH 14.8 % (0-14.5); WHITE BLOOD COUNT 12.4 10*3/uL (4.8-10.8)
[2017-08-28 06:43] LABS: MEAN CELL VOLUME 81.9 fl (80.0-94.0)
[2017-08-28 08:00] VITALS: BP 150/90
--- NOTE | 2017-08-28 08:56 | NUR ---
PT REQUESTED AND WAS MEDICATED WITH DILAUDID FOR C/O ABDOMINAL PAIN. CALL LIGHT IN REACH. WILL MONITOR
--- NOTE | 2017-08-28 09:00 | NUR ---
case management visits with patient, patient denies any home needs
[2017-08-28 09:50] LABS: BUN 7 mg/dl (7-24); CHLORIDE 104 mmol/L (98-107); CREATININE 0.68 mg/dL (0.70-1.30); POTASSIUM 3.3 mmol/L (3.5-5.1); SODIUM 139 mmol/L (136-145)
--- NOTE | 2017-08-28 10:00 | NUR ---
PT ENCOURAGED TO GET UP IN CHAIR/AMBULATE. PT REFUSES AT THIS TIME. HE STATES HE WILL LATE. EDUCATED ON IMPORTANCE OF GETTING UP.
--- NOTE | 2017-08-28 11:22 | NUR ---
DR LOUIS NOTIFIED OF POTASSIUM ON BASIC PANEL FROM THIS AM OF 3.3.
--- NOTE | 2017-08-28 11:39 | NUR ---
PT REQUESTED AND WAS MEDICATED WITH DILAUDID FOR C/O ABDOMINAL PAIN. CALL LIGHT IN REACH. WILL MONITOR
[2017-08-28 12:00] VITALS: BP 136/88
--- NOTE | 2017-08-28 14:30 | NUR ---
PT CONTINUES TO REFUSE TO GET UP IN CHAIR/AMBULATE. HE STATES HE WILL WHEN HIS COMES LATER TO HELP HIM BATHE.
[2017-08-28 16:00] VITALS: BP 147/97
--- NOTE | 2017-08-28 18:40 | NUR ---
IN ROOM. EDUCATED PT AND ON IMPORTANCE OF GETTING UP. PT STATES "I WILL". PT HAD THIS NURSE REMOVE SCD'S. WILL MONITOR.
--- NOTE | 2017-08-28 18:47 | NUR ---
DRY DRSG CHANGED NO DRAINAGE NOTED TO RETENTION SUTURE SITES. SMALL AMT OF SEROSANG. NOTED TO SAHIL DRAIN SITE.
[2017-08-28 20:00] VITALS: BP 151/87
--- NOTE | 2017-08-28 20:54 | NUR ---
PATIENT MEDICATED WITH PRN DILAUDID FOR C/O PAIN RATED 9/10 ON A 0/10 PAIN SCALE. WILL MONITOR. AND SON AT BEDSIDE.
--- NOTE | 2017-08-28 21:00 | NUR ---
DR GUAMAN AT NURSES STATION AND AWARE OF PATIENT FREQUENTLY ASKING FOR PAIN MEDICATION. STATES THIS IS DR HITCHCOCK'S ORDER AND THEY CANNOT CHANGE IT.
--- NOTE | 2017-08-28 23:52 | NUR ---
PATIENT RESTING IN BED WITH NO S/S OF DISTRESS. RESPS EASY AND REGULAR. BED IN LOWEST POSITION, CALL LIGHT IN REACH
[2017-08-29] VITALS: BP 124/83
--- NOTE | 2017-08-29 00:39 | NUR ---
PATIENT MEDICATED WITH PRN DILAUDID FOR PAIN RATED 9/10 ON A 0/10 PAIN SCALE. PATIENT EDUCATED ON THE IMPORTANCE OF GETTING UP AND AMBULATING IN THE AM. VERBALIZED UNDERSTANDING. WILL CONINTUE TO MONITOR
--- NOTE | 2017-08-29 05:11 | NUR ---
PATIENT MEDICATED WITH PRN DILAUDID FOR C/O ABD PAIN RATED 9/10 ON A 0/10 PAIN SCALE
--- NOTE | 2017-08-29 06:26 | NUR ---
PATIENT RESTING WITH EYES CLOSED. MEDICATION SEEMS EFFECTIVE
[2017-08-29 06:37] LABS: BASO % 0.2 % (0.0-1.0); EOS # 0.7 10*3/uL (0.0-0.4); HEMATOCRIT 29.1 % (42.0-52.0); HEMOGLOBIN 9.1 g/dl (14.0-18.0); LYMPH # 1.5 10*3/uL (1.3-4.4); LYMPH % 10.4 % (27.0-41.0); MEAN CORPUSCULAR HGB 25.6 pg (27.0-31.0); MEAN CORPUSCULAR HGB CONC 31.3 g/dl (33.0-37.0); MEAN PLATELET VOLUME 9.6 fl (9.6-12.3); MONO # 1.2 10*3/uL (0.1-1.0); NEUT # 11.1 10*3/uL (2.3-7.9); NEUT % 75.8 % (47.0-73.0); PLATELET COUNT AUTOMATED 289 10*3/uL (130-400); RED BLOOD COUNT 3.55 10*6/uL (4.50-5.90); RED CELL DISTRI WIDTH 14.5 % (0-14.5); WHITE BLOOD COUNT 14.7 10*3/uL (4.8-10.8)
[2017-08-29 06:54] LABS: BUN 6 mg/dl (7-24); CHLORIDE 99 mmol/L (98-107); CREATININE 0.64 mg/dL (0.70-1.30); POTASSIUM 3.6 mmol/L (3.5-5.1); SODIUM 136 mmol/L (136-145)
[2017-08-29 08:00] VITALS: BP 129/81
--- NOTE | 2017-08-29 09:00 | NUR ---
case management visits wtih patient, patient denies any home needs
--- NOTE | 2017-08-29 09:00 | NUR ---
PT UP IN CHAIR.
--- NOTE | 2017-08-29 10:14 | NUR ---
Nutritional Support Services Note: Pt remains NPO at this time. NGT at this time secondary to distention. Cellulitis of abdominal wall. Will continue to follow for advancement of po intake. Aurelia Navas
--- NOTE | 2017-08-29 10:25 | NUR ---
NG TUBE REMOVED. PT TOLERATED WELL.
[2017-08-29 12:00] VITALS: BP 127/75
[2017-08-29 16:00] VITALS: BP 122/75
--- NOTE | 2017-08-29 16:31 | NUR ---
PT REMAINS UP IN CHAIR AND HAS AMBULATED IN ROOM A FEW TIMES TODAY. WILL MONITOR
--- NOTE | 2017-08-29 18:02 | NUR ---
PT AMBULATED IN HALLS 2 LAPS AROUND. PT TOLERATED WELL.
[2017-08-29 20:00] VITALS: BP 147/98
--- NOTE | 2017-08-29 21:29 | NUR ---
PATIENT MEDICATED WITH PRN DILAUDID FOR C/O ABD PAIN RATED 8/10 ON A 0/10 PAIN SCALE
--- NOTE | 2017-08-29 22:30 | NUR ---
PATIENT RESTING WITH EYES CLOSED. MEDICATION SEENS EFFECTIVE
--- NOTE | 2017-08-29 23:30 | NUR ---
PT. AWAKE, ALERT AND ORIENTED X 3 AT THIS TIME. PT. HRR, PPP, NO EDEMA, DENIES CP. PT. LUNGS CLEAR T/O, STATED "PRODUCTIVE COUGH THAT IS IMPROVING," NOT WITNESSED DURING ASSESSMENT. PT. STATED ABDOMINAL PAIN/DISCOMFORT 03/31, DENIES N/V/D AT THIS TIME. ABDOMINAL DRESSING C/D/I, SAHIL DRAIN WITHOUT DRAINAGE AT THIS TIME. CALL LIGHT WITHIN REACH, BED IN LOWEST POSITION, WHEELS LOCKED.
[2017-08-30] VITALS: BP 151/86
--- NOTE | 2017-08-30 00:48 | NUR ---
PT. REQUESTED DILAUDID FOR ABDOMINAL PAIN 03/31. DILAUDID ADM, WILL CONTINUE TO MONITOR FOR EFFECTIVENESS.
--- NOTE | 2017-08-30 01:20 | NUR ---
PT. STATED IMPROVEMENT OF ABDOMINAL PAIN FROM 6/10 TO 3/10.
--- NOTE | 2017-08-30 03:32 | NUR ---
PT. STATED ABDOMINAL PAIN OF 04/30. MARCOID ADM, WILL CONTINUE TO MONITOR EFFECTIVENESS.
--- NOTE | 2017-08-30 04:02 | NUR ---
PT. STATED IMPROVEMENT OF PAIN FROM 7/10 TO 3/10.
[2017-08-30 06:43] LABS: BUN 5 mg/dl (7-24); CHLORIDE 102 mmol/L (98-107); CREATININE 0.61 mg/dL (0.70-1.30); POTASSIUM 3.6 mmol/L (3.5-5.1); SODIUM 136 mmol/L (136-145)
[2017-08-30 08:00] VITALS: BP 120/67
[2017-08-30 08:18] LABS: BASO % 0.2 % (0.0-1.0); EOS # 0.7 10*3/uL (0.0-0.4); EOS % 8.5 % (1.0-4.0); HEMOGLOBIN 8.9 g/dl (14.0-18.0); LYMPH # 1.3 10*3/uL (1.3-4.4); LYMPH % 14.9 % (27.0-41.0); MEAN CELL VOLUME 82.4 fl (80.0-94.0); MEAN CORPUSCULAR HGB 26.2 pg (27.0-31.0); MEAN CORPUSCULAR HGB CONC 31.8 g/dl (33.0-37.0); MEAN PLATELET VOLUME 9.3 fl (9.6-12.3); MONO # 0.7 10*3/uL (0.1-1.0); MONO % 7.9 % (3.0-9.0); PLATELET COUNT AUTOMATED 242 10*3/uL (130-400); RED CELL DISTRI WIDTH 14.4 % (0-14.5); WHITE BLOOD COUNT 8.8 10*3/uL (4.8-10.8)
--- NOTE | 2017-08-30 09:00 | NUR ---
case management visits with patient, patient denies any home needs at this time
--- NOTE | 2017-08-30 09:08 | NUR ---
PATIENT RESTING IN BED CALL LIGHT IN REACH CO OF ABDOMINAL PAIN A 7 OUT OF 10. GAVE DILUAID FOR PAIN WILL REASSESS FOR EFFECTIVENESS OF MEDICATION. SEE SHIFT ASSESSMENT
[2017-08-30 12:00] VITALS: BP 149/87
[2017-08-30 16:00] VITALS: BP 139/85
[2017-08-30 19:59] VITALS: BP 145/85
--- NOTE | 2017-08-30 20:13 | NUR ---
PATIENT REQUESTED DIULADID FOR PAIN 05/31. WAS UP WALKING IN HALLWAY WITHOUT PROBLEMS. PAIN MEDICATION GIVEN AT 2004, WITHOUT PROBLEMS. IV TUBING CHANGED.
--- NOTE | 2017-08-30 20:50 | NUR ---
PAIN MEDICATION EFFECTIVE, PATIENT STATES PAIN 4/10.
[2017-08-31] VITALS: BP 146/94
[2017-08-31 06:52] LABS: BASO % 0.4 % (0.0-1.0); EOS # 0.7 10*3/uL (0.0-0.4); EOS % 10.2 % (1.0-4.0); HEMATOCRIT 28.6 % (42.0-52.0); LYMPH # 1.4 10*3/uL (1.3-4.4); LYMPH % 20.6 % (27.0-41.0); MEAN CELL VOLUME 81.9 fl (80.0-94.0); MEAN CORPUSCULAR HGB 25.8 pg (27.0-31.0); MEAN CORPUSCULAR HGB CONC 31.5 g/dl (33.0-37.0); MEAN PLATELET VOLUME 9.6 fl (9.6-12.3); MONO # 0.7 10*3/uL (0.1-1.0); MONO % 9.5 % (3.0-9.0); NEUT % 58.9 % (47.0-73.0); PLATELET COUNT AUTOMATED 266 10*3/uL (130-400); RED BLOOD COUNT 3.49 10*6/uL (4.50-5.90); RED CELL DISTRI WIDTH 14.6 % (0-14.5); WHITE BLOOD COUNT 6.9 10*3/uL (4.8-10.8)
[2017-08-31 07:29] LABS: BUN 3 mg/dl (7-24); CHLORIDE 102 mmol/L (98-107); POTASSIUM 3.4 mmol/L (3.5-5.1); SODIUM 139 mmol/L (136-145)
[2017-08-31 07:37] LABS: CREATININE 0.68 mg/dL (0.70-1.30); PHOSPHOROUS 3.5 mg/dL (2.5-4.9)
[2017-08-31 08:00] VITALS: BP 124/78
--- NOTE | 2017-08-31 08:20 | NUR ---
PRN PAIN MED GIVEN FOR 6/10 INCISIONAL PAIN TO ABDOMEN.
--- NOTE | 2017-08-31 08:51 | NUR ---
case managememt visits with patient, patient denies any home needs
[2017-08-31] MEDS ORDERED: CIPRO500 MG PO (10:58)
[2017-08-31] MEDS ORDERED: B12,B-12,B 12500 MC1 PO (11:00)
[2017-08-31] MEDS ORDERED: COLACE100 MG PO (11:04)
[2017-08-31] MEDS ORDERED: PERCOCET 5-3251 EACH PO (11:08)
--- NOTE | 2017-08-31 12:00 | NUR ---
Discharge instructions reviewed with patient/family. Patient receptive and verbalizes understanding. Follow-up care arranged. Written instructions given to patient/family. TANGELA VALDEZ
== END 2017-08-31 12:00 | disposition home or self-care (01) | DRG 907 ==
LOC: ED 23:44 → EDHOLD 08-25 01:40 → 5E 08-25 01:40
PROVIDERS: Family Medicine; Internal Medicine; Nurse Practitioner Family; Student in an Organized Health Care Education/Training Program; Surgery; ADMIT Internal Medicine
PROC: 0WPF0JZ Removal of Synthetic Substitute from Abdominal Wall, Open Approach (ICD-10-PCS; principal; 2017-08-25)
PROC: 0WQF0ZZ Repair Abdominal Wall, Open Approach (ICD-10-PCS; 2017-08-25)
PROC: 0D9670Z Drainage of Stomach with Drainage Device, Via Natural or Artificial Opening (ICD-10-PCS; 2017-08-25)
DX: T85.79XA Infection and inflammatory reaction due to other internal prosthetic devices, implants and grafts, initial encounter (principal); A41.9 Sepsis, unspecified organism; E43 Unspecified severe protein-calorie malnutrition; E66.01 Morbid (severe) obesity due to excess calories; L03.311 Cellulitis of abdominal wall; Z68.42 Body mass index [BMI] 45.0-49.9, adult; E83.42 Hypomagnesemia; G89.18 Other acute postprocedural pain; E53.8 Deficiency of other specified B group vitamins; R00.0 Tachycardia, unspecified; R73.9 Hyperglycemia, unspecified; K21.9 Gastro-esophageal reflux disease without esophagitis; E87.6 Hypokalemia; K43.9 Ventral hernia without obstruction or gangrene; Z98.890 Other specified postprocedural states; Z87.19 Personal history of other diseases of the digestive system; Z90.49 Acquired absence of other specified parts of digestive tract; Z71.6 Tobacco abuse counseling; Z87.442 Personal history of urinary calculi; Y83.8 Other surgical procedures as the cause of abnormal reaction of the patient, or of later complication, without mention of misadventure at the time of the procedure; Y92.89 Other specified places as the place of occurrence of the external cause; F17.210 Nicotine dependence, cigarettes, uncomplicated; Z91.012 Allergy to eggs

== ENCOUNTER 2017-11-27 16:33 | Emergency (ER) | payer OTHER ==
[~2017-11-27] VITALS: Ht 172.7 cm; Wt 125.2 kg
[~2017-11-27 16:33] MED LIST changes: +B12,B-12,B 12500 MC1 PO; +CIPRO500 MG PO; +COLACE100 MG PO
[2017-11-27 16:36] VITALS: BP 122/60
== END 2017-11-27 16:50 | disposition home or self-care (01) ==
LOC: ED 16:33
DX: S01.01XD Laceration without foreign body of scalp, subsequent encounter (principal); Z98.890 Other specified postprocedural states; Z90.49 Acquired absence of other specified parts of digestive tract; Z79.899 Other long term (current) drug therapy; X58.XXXD Exposure to other specified factors, subsequent encounter

== ENCOUNTER 2017-12-08 20:06 | Emergency (ER) | payer OTHER ==
[~2017-12-08] VITALS: Ht 172.7 cm; Wt 134.3 kg
[2017-12-08 20:19] VITALS: BP 132/78
[2017-12-08 20:52] LABS: BILIRUBIN NEGATIVE (NEGATIVE); BLOOD NEGATIVE (NEGATIVE); CLARITY SL CLOUDY (CLEAR); COLOR YELLOW (YELLOW); GLUCOSE NEGATIVE (NEGATIVE); KETONE NEGATIVE (NEGATIVE); LEUKO ESTERASE NEGATIVE (NEGATIVE); NITRITE NEGATIVE (NEGATIVE); SPECIFIC GRAVITY >= 1.030 (1.005-1.030); UROBILINOGEN 0.2 E.U./dl (0.2-1.0)
[2017-12-08 21:10] LABS: BACTERIA 2+; MUCOUS TRACE; RBC 0-2 rbc/hpf (0-2); WBC 0-2 wbc/hpf (0-5)
[2017-12-08] MEDS ORDERED: ROBAXIN500 M1 PO (21:15)
[2017-12-08] MEDS ORDERED: ANAPROX DS550 MG PO (21:15)
== END 2017-12-08 21:13 | disposition home or self-care (01) ==
LOC: ED 20:06
PROVIDERS: Physician Assistant
DX: M54.5 Low back pain (principal); F17.210 Nicotine dependence, cigarettes, uncomplicated; Z87.442 Personal history of urinary calculi

== ENCOUNTER 2018-03-25 10:01 | Emergency (ER) | payer OTHER ==
[~2018-03-25] VITALS: Ht 172.7 cm; Wt 130.2 kg
[~2018-03-25 10:01] MED LIST changes: +ROBAXIN500 M1 PO
[2018-03-25 10:02] VITALS: BP 118/63
[2018-03-25] MEDS ORDERED: PREDNISONE10 MG PO (10:05)
== END 2018-03-25 10:10 | disposition home or self-care (01) ==
LOC: ED 10:01
DX: L23.7 Allergic contact dermatitis due to plants, except food (principal); F17.210 Nicotine dependence, cigarettes, uncomplicated; K21.9 Gastro-esophageal reflux disease without esophagitis; E66.01 Morbid (severe) obesity due to excess calories; Z79.899 Other long term (current) drug therapy; Z90.49 Acquired absence of other specified parts of digestive tract; Z98.890 Other specified postprocedural states

== ENCOUNTER 2019-07-08 23:01 | Emergency (ER) | payer SELFPAY ==
[~2019-07-08] VITALS: Ht 172.7 cm; Wt 164.2 kg
[2019-07-08 23:02] VITALS: BP 126/79
[2019-07-09 00:09] LABS: BASO # 0.1 10*3/uL (0.0-0.1); BASO % 0.5 % (0.0-1.0); EOS # 0.3 10*3/uL (0.0-0.4); EOS % 2.6 % (1.0-4.0); HEMATOCRIT 41.1 % (42.0-52.0); HEMOGLOBIN 13.3 g/dl (14.0-18.0); LYMPH # 3.9 10*3/uL (1.3-4.4); LYMPH % 32.3 % (27.0-41.0); MEAN CELL VOLUME 84.6 fl (80.0-94.0); MEAN CORPUSCULAR HGB 27.4 pg (27.0-31.0); MEAN CORPUSCULAR HGB CONC 32.4 g/dl (33.0-37.0); MEAN PLATELET VOLUME 10.4 fl (9.6-12.3); MONO # 0.9 10*3/uL (0.1-1.0); MONO % 7.8 % (3.0-9.0); NEUT # 6.8 10*3/uL (2.3-7.9); NEUT % 56.5 % (47.0-73.0); PLATELET COUNT AUTOMATED 273 10*3/uL (130-400); RED BLOOD COUNT 4.86 10*6/uL (4.50-5.90); RED CELL DISTRI WIDTH 14.8 % (0-14.5); WHITE BLOOD COUNT 12.1 10*3/uL (4.8-10.8)
[2019-07-09 00:25] LABS: ALBUMIN 3.2 gm/dl (3.1-4.5); ALKALINE PHOSPHATASE 93 U/L (45-117); BUN 10 mg/dl (7-24); CHLORIDE 107 mmol/L (98-107); CREATININE 0.85 mg/dL (0.70-1.30); LIPASE 132 U/L (73-393); POTASSIUM 3.6 mmol/L (3.5-5.1); SGOT/AST 16 IU/L (3-35); SGPT/ALT 20 U/L (12-78); SODIUM 140 mmol/L (136-145); TOTAL PROTEIN 6.6 gm/dL (6.4-8.2)
[2019-07-09 01:04] LABS: BILIRUBIN NEGATIVE (NEGATIVE); BLOOD NEGATIVE (NEGATIVE); CLARITY CLEAR (CLEAR); COLOR YELLOW (YELLOW); GLUCOSE NEGATIVE (NEGATIVE); KETONE NEGATIVE (NEGATIVE); LEUKO ESTERASE NEGATIVE (NEGATIVE); NITRITE NEGATIVE (NEGATIVE); PH 6.5 (5.0-9.0); UROBILINOGEN 0.2 E.U./dl (0.2-1.0)
[2019-07-09 01:11] LABS: BACTERIA TRACE; WBC 0-2 wbc/hpf (0-5)
== END 2019-07-09 04:21 | disposition home or self-care (01) ==
LOC: ED 23:01
PROVIDERS: Physician Assistant
DX: R10.31 Right lower quadrant pain (principal); R11.0 Nausea; K21.9 Gastro-esophageal reflux disease without esophagitis; E66.01 Morbid (severe) obesity due to excess calories; F17.210 Nicotine dependence, cigarettes, uncomplicated; Z91.012 Allergy to eggs; Z91.048 Other nonmedicinal substance allergy status; Z79.899 Other long term (current) drug therapy; Z90.49 Acquired absence of other specified parts of digestive tract; Z87.442 Personal history of urinary calculi

== ENCOUNTER 2019-09-25 20:57 | Emergency (ER) | payer OTHER ==
[~2019-09-25] VITALS: Ht 172.7 cm; Wt 142.9 kg
[2019-09-25 20:58] VITALS: BP 138/59
== END 2019-09-25 23:27 | disposition home or self-care (01) ==
LOC: ED 20:57
DX: S46.912A Strain of unspecified muscle, fascia and tendon at shoulder and upper arm level, left arm, initial encounter (principal); M19.012 Primary osteoarthritis, left shoulder; K21.9 Gastro-esophageal reflux disease without esophagitis; I10 Essential (primary) hypertension; E66.01 Morbid (severe) obesity due to excess calories; F17.210 Nicotine dependence, cigarettes, uncomplicated; Z91.048 Other nonmedicinal substance allergy status; Z79.899 Other long term (current) drug therapy; Z90.49 Acquired absence of other specified parts of digestive tract; X50.0XXA Overexertion from strenuous movement or load, initial encounter; Y93.89 Activity, other specified; Y92.89 Other specified places as the place of occurrence of the external cause; Y99.8 Other external cause status

== ENCOUNTER → 2020-06-25 | Outpatient (CLI) | payer OTHER | END | disposition home or self-care (01) | LOC: COVID19 00:32 | PROVIDERS: ATTEND Family Medicine | DX: J06.9 Acute upper respiratory infection, unspecified (principal); Z20.828 Contact with and (suspected) exposure to other viral communicable diseases ==

== ENCOUNTER 2020-11-26 21:36 | Emergency (ER) | payer OTHER ==
[~2020-11-26] VITALS: Ht 172.7 cm; Wt 164.2 kg
[2020-11-26 21:47] VITALS: BP 127/59
[2020-11-26 21:59] LABS: BASO % 0.3 % (0.0-1.0); EOS # 0.2 10*3/uL (0.0-0.4); EOS % 1.4 % (1.0-4.0); HEMATOCRIT 40.6 % (42.0-52.0); LYMPH # 3.6 10*3/uL (1.3-4.4); LYMPH % 29.1 % (27.0-41.0); MEAN CELL VOLUME 80.7 fl (80.0-94.0); MEAN CORPUSCULAR HGB CONC 32.3 g/dl (33.0-37.0); MEAN PLATELET VOLUME 9.4 fl (9.6-12.3); MONO # 0.8 10*3/uL (0.1-1.0); MONO % 6.5 % (3.0-9.0); NEUT # 7.7 10*3/uL (2.3-7.9); NEUT % 62.3 % (47.0-73.0); PLATELET COUNT AUTOMATED 318 10*3/uL (130-400); RED BLOOD COUNT 5.03 10*6/uL (4.50-5.90); RED CELL DISTRI WIDTH 14.4 % (0-14.5); WHITE BLOOD COUNT 12.3 10*3/uL (4.8-10.8)
[2020-11-26 22:08] LABS: BILIRUBIN Negative (Negative); BLOOD 3+ (Negative); CLARITY Cloudy (Clear); COLOR Orange (Yellow); GLUCOSE Negative (Negative); KETONE Negative (Negative); LEUKO ESTERASE Trace (Negative); NITRITE Negative (Negative); SPECIFIC GRAVITY 1.025 (1.001-1.030)
[2020-11-26 22:19] LABS: ALBUMIN 3.7 gm/dl (3.1-4.5); ALKALINE PHOSPHATASE 106 U/L (45-117); BUN 17 mg/dl (7-24); CHLORIDE 108 mmol/L (98-107); CREATININE 1.03 mg/dL (0.70-1.30); POTASSIUM 3.5 mmol/L (3.5-5.1); SGOT/AST 10 IU/L (3-35); SGPT/ALT 20 U/L (12-78); SODIUM 139 mmol/L (136-145); TOTAL PROTEIN 7.9 gm/dL (6.4-8.2)
[2020-11-26 22:23] LABS: BACTERIA 1+; RBC 31-40 rbc/hpf (0-2)
[2020-11-26] MEDS ORDERED: PERCOCET 5-3251 EACH PO (23:31)
== END 2020-11-26 23:40 | disposition home or self-care (01) ==
LOC: ED 21:36
PROVIDERS: Nurse Practitioner Family
DX: N13.2 Hydronephrosis with renal and ureteral calculous obstruction (principal); I10 Essential (primary) hypertension; K21.9 Gastro-esophageal reflux disease without esophagitis; Z91.048 Other nonmedicinal substance allergy status; Z79.899 Other long term (current) drug therapy; Z98.890 Other specified postprocedural states; Z90.49 Acquired absence of other specified parts of digestive tract

== ENCOUNTER 2020-11-28 20:58 | Emergency (ER) | payer OTHER ==
[~2020-11-28] VITALS: Ht 180.3 cm
[2020-11-28 21:20] VITALS: BP 134/82
[2020-11-28 21:38] LABS: BASO # 0.1 10*3/uL (0.0-0.1); BASO % 0.3 % (0.0-1.0); EOS # 0.2 10*3/uL (0.0-0.4); EOS % 1.3 % (1.0-4.0); HEMATOCRIT 41.9 % (42.0-52.0); LYMPH % 19.6 % (27.0-41.0); MEAN CELL VOLUME 81.5 fl (80.0-94.0); MEAN CORPUSCULAR HGB 25.9 pg (27.0-31.0); MEAN CORPUSCULAR HGB CONC 31.7 g/dl (33.0-37.0); MEAN PLATELET VOLUME 9.6 fl (9.6-12.3); MONO # 1.1 10*3/uL (0.1-1.0); MONO % 7.3 % (3.0-9.0); NEUT # 10.7 10*3/uL (2.3-7.9); PLATELET COUNT AUTOMATED 317 10*3/uL (130-400); RED BLOOD COUNT 5.14 10*6/uL (4.50-5.90); RED CELL DISTRI WIDTH 14.2 % (0-14.5); WHITE BLOOD COUNT 15.1 10*3/uL (4.8-10.8)
[2020-11-28 21:53] LABS: ALBUMIN 3.6 gm/dl (3.1-4.5); ALKALINE PHOSPHATASE 98 U/L (45-117); BUN 13 mg/dl (7-24); CHLORIDE 109 mmol/L (98-107); CREATININE 1.31 mg/dL (0.70-1.30); LIPASE 79 U/L (73-393); SGOT/AST 12 IU/L (3-35); SGPT/ALT 19 U/L (12-78); SODIUM 141 mmol/L (136-145); TOTAL PROTEIN 7.7 gm/dL (6.4-8.2)
[2020-11-28 22:13] LABS: BILIRUBIN Negative (Negative); BLOOD 3+ (Negative); CLARITY Clear (Clear); COLOR Yellow (Yellow); GLUCOSE Negative (Negative); KETONE Trace (Negative); LEUKO ESTERASE Negative (Negative); NITRITE Negative (Negative); PH 5.5 (4.5-8.0); SPECIFIC GRAVITY >= 1.030 (1.001-1.030)
[2020-11-28 22:52] LABS: BACTERIA 1+; MUCOUS 1+; RBC 41-50 rbc/hpf (0-2)
[2020-11-29] MEDS ORDERED: CIPRO500 MG PO (00:16)
[2020-11-29] MEDS ORDERED: FLOMAX0.4 MG PO (00:16)
[2020-11-29] MEDS ORDERED: Motrin,Rufen800 MG PO (00:16)
[2020-11-29] MEDS ORDERED: ZOFRAN4 MG PO (00:16)
[2020-11-29] MEDS ORDERED: Percocet 325 MG1 TAB PO (00:16)
== END 2020-11-29 00:34 | disposition home or self-care (01) ==
LOC: ED 20:58
PROVIDERS: Physician Assistant
DX: N13.2 Hydronephrosis with renal and ureteral calculous obstruction (principal); I10 Essential (primary) hypertension; K21.9 Gastro-esophageal reflux disease without esophagitis; Z87.891 Personal history of nicotine dependence; Z91.048 Other nonmedicinal substance allergy status; Z79.899 Other long term (current) drug therapy; Z90.49 Acquired absence of other specified parts of digestive tract

== ENCOUNTER 2022-02-11 19:22 | Emergency (ER) | payer OTHER ==
[~2022-02-11] VITALS: Ht 172.7 cm; Wt 131.5 kg
[~2022-02-11 19:22] MED LIST changes: +Percocet 325 MG1 TAB PO
[2022-02-11 19:37] VITALS: BP 110/67
[2022-02-11] MEDS ORDERED: NAPROSYN500 MG PO (21:50)
== END 2022-02-11 22:00 | disposition home or self-care (01) ==
LOC: ED 19:22
DX: S90.32XA Contusion of left foot, initial encounter (principal); Z98.890 Other specified postprocedural states; Z79.899 Other long term (current) drug therapy; Z90.49 Acquired absence of other specified parts of digestive tract; Z87.891 Personal history of nicotine dependence; W20.8XXA Other cause of strike by thrown, projected or falling object, initial encounter; Y93.89 Activity, other specified; Y92.89 Other specified places as the place of occurrence of the external cause; Y99.8 Other external cause status

== ENCOUNTER 2022-08-21 19:13 | Emergency (ER) | payer OTHER ==
[~2022-08-21] VITALS: Ht 172.7 cm; Wt 119.7 kg
[~2022-08-21 19:13] MED LIST changes: +NAPROSYN500 MG PO
[2022-08-21 19:37] LABS: BASO % 0.3 % (0.0-1.0); EOS # 0.2 10*3/uL (0.0-0.4); EOS % 1.9 % (1.0-4.0); HEMATOCRIT 39.9 % (42.0-52.0); LYMPH # 2.7 10*3/uL (1.3-4.4); LYMPH % 26.2 % (27.0-41.0); MEAN CELL VOLUME 82.6 fl (80.0-94.0); MEAN CORPUSCULAR HGB 26.1 pg (27.0-31.0); MEAN CORPUSCULAR HGB CONC 31.6 g/dl (33.0-37.0); MEAN PLATELET VOLUME 9.7 fl (9.6-12.3); MONO # 0.8 10*3/uL (0.1-1.0); MONO % 7.8 % (3.0-9.0); NEUT # 6.6 10*3/uL (2.3-7.9); NEUT % 63.5 % (47.0-73.0); PLATELET COUNT AUTOMATED 264 10*3/uL (130-400); RED BLOOD COUNT 4.83 10*6/uL (4.50-5.90); RED CELL DISTRI WIDTH 14.5 % (0-14.5); WHITE BLOOD COUNT 10.4 10*3/uL (4.8-10.8)
[2022-08-21 19:51] LABS: ALKALINE PHOSPHATASE 89 U/L (45-117); BUN 12 mg/dl (7-24); CHLORIDE 112 mmol/L (98-107); CREATININE 0.83 mg/dL (0.70-1.30); POTASSIUM 3.4 mmol/L (3.5-5.1); SGOT/AST 11 IU/L (3-35); SGPT/ALT 21 U/L (12-78); SODIUM 141 mmol/L (136-145); TOTAL PROTEIN 6.8 gm/dL (6.4-8.2)
[2022-08-21 21:18] VITALS: BP 121/74
== END 2022-08-21 22:02 | disposition home or self-care (01) ==
LOC: ED 19:13
PROVIDERS: Internal Medicine
DX: R07.9 Chest pain, unspecified (principal); Z91.018 Allergy to other foods; Z98.890 Other specified postprocedural states; Z90.49 Acquired absence of other specified parts of digestive tract; F17.210 Nicotine dependence, cigarettes, uncomplicated

== ENCOUNTER 2022-09-11 20:25 | Emergency (ER) | payer OTHER ==
[~2022-09-11] VITALS: Ht 172.7 cm; Wt 148.3 kg
[2022-09-11 20:33] VITALS: BP 116/61
[2022-09-11] MEDS ORDERED: BENZONATATE100 M1 PO ×2 (23:24)
[2022-09-11] MEDS ORDERED: VIBRAMYCIN100 MG PO ×2 (23:24)
== END 2022-09-11 23:28 | disposition home or self-care (01) ==
LOC: ED 20:25
DX: J40 Bronchitis, not specified as acute or chronic (principal); Z20.822 Contact with and (suspected) exposure to COVID-19; K21.9 Gastro-esophageal reflux disease without esophagitis; E66.9 Obesity, unspecified; Z91.018 Allergy to other foods; Z90.49 Acquired absence of other specified parts of digestive tract; Z98.890 Other specified postprocedural states; F17.210 Nicotine dependence, cigarettes, uncomplicated

== ENCOUNTER 2022-09-24 10:54 | Emergency (ER) | payer OTHER ==
[~2022-09-24] VITALS: Ht 172.7 cm; Wt 142.9 kg
[~2022-09-24 10:54] MED LIST changes: +BENZONATATE100 M1 PO
[2022-09-24] MEDS ORDERED: LOSARTAN POTAS100 M1 PO (11:29)
[2022-09-24] MEDS ORDERED: AMLODIPINE BESY10 MG PO (11:29)
[2022-09-24] MEDS ORDERED: HYDROCHLOROTHIA50 M1 PO (11:29)
[2022-09-24] MEDS ORDERED: BUPROPION HYDR150 M1 PO (11:30)
[2022-09-24 11:54] LABS: BASO % 0.4 % (0.0-1.0); EOS # 0.3 10*3/uL (0.0-0.4); EOS % 2.4 % (1.0-4.0); HEMATOCRIT 40.5 % (42.0-52.0); LYMPH # 1.9 10*3/uL (1.3-4.4); LYMPH % 17.7 % (27.0-41.0); MEAN CELL VOLUME 78.8 fl (80.0-94.0); MEAN CORPUSCULAR HGB 26.5 pg (27.0-31.0); MEAN CORPUSCULAR HGB CONC 33.6 g/dl (33.0-37.0); MEAN PLATELET VOLUME 9.4 fl (9.6-12.3); MONO % 9.3 % (3.0-9.0); NEUT # 7.6 10*3/uL (2.3-7.9); NEUT % 69.9 % (47.0-73.0); PLATELET COUNT AUTOMATED 304 10*3/uL (130-400); RED BLOOD COUNT 5.14 10*6/uL (4.50-5.90); RED CELL DISTRI WIDTH 14.2 % (0-14.5); WHITE BLOOD COUNT 10.9 10*3/uL (4.8-10.8)
[2022-09-24 12:09] LABS: ALKALINE PHOSPHATASE 84 U/L (46-116); BUN 12 mg/dl (9-23); CHLORIDE 103 mmol/L (98-107); SGPT/ALT 21 U/L (10-49); SODIUM 137 mmol/L (136-145); TOTAL PROTEIN 6.9 gm/dL (6.0-8.0)
[2022-09-24 13:21] VITALS: BP 108/60
== END 2022-09-24 14:05 | disposition home or self-care (01) ==
LOC: ED 10:54
PROVIDERS: Physician Assistant
DX: R42 Dizziness and giddiness (principal); Z91.012 Allergy to eggs; Z90.49 Acquired absence of other specified parts of digestive tract; Z98.890 Other specified postprocedural states; F17.200 Nicotine dependence, unspecified, uncomplicated

== ENCOUNTER → 2022-10-17 | Outpatient (CLI) | payer OTHER ==
[~2022-10-17] MED LIST changes: +AMLODIPINE BESY10 MG PO; +BUPROPION HYDR150 M1 PO; +HYDROCHLOROTHIA50 M1 PO; +LOSARTAN POTAS100 M1 PO
[2022-10-17 10:58] LABS: BILIRUBIN Negative (Negative); BLOOD Negative (Negative); CLARITY Clear (Clear); COLOR Yellow (Yellow); GLUCOSE Negative (Negative); KETONE Negative (Negative); LEUKO ESTERASE Negative (Negative); NITRITE Negative (Negative)
[2022-10-17 11:17] LABS: ALKALINE PHOSPHATASE 79 U/L (46-116); LIPASE 46 U/L (12-53); SGPT/ALT 16 U/L (10-49); TOTAL PROTEIN 6.9 gm/dL (6.0-8.0)
[2022-10-17 11:37] LABS: BACTERIA 1+; WBC 0-2 wbc/hpf (0-5)
== END | disposition home or self-care (01) ==
LOC: LAB 10:04
PROVIDERS: ATTEND Family Medicine
DX: R10.84 Generalized abdominal pain (principal); Z90.49 Acquired absence of other specified parts of digestive tract

== ENCOUNTER → 2022-10-21 | Outpatient (CLI) | payer OTHER | END | disposition home or self-care (01) | LOC: CT 03:34 | PROVIDERS: ATTEND Family Medicine | DX: K43.9 Ventral hernia without obstruction or gangrene (principal); M62.00 Separation of muscle (nontraumatic), unspecified site; K46.9 Unspecified abdominal hernia without obstruction or gangrene; K76.0 Fatty (change of) liver, not elsewhere classified; Z90.49 Acquired absence of other specified parts of digestive tract ==

== ENCOUNTER 2023-06-01 22:28 | Emergency (ER) | payer OTHER ==
[~2023-06-01] VITALS: Ht 172.7 cm; Wt 145.2 kg
[2023-06-01 22:48] VITALS: BP 113/47
[2023-06-01 23:13] LABS: BASO # 0.1 10*3/uL (0.0-0.1); BASO % 0.4 % (0.0-1.0); EOS # 0.3 10*3/uL (0.0-0.4); EOS % 2.1 % (1.0-4.0); HEMATOCRIT 39.1 % (42.0-52.0); LYMPH # 3.4 10*3/uL (1.3-4.4); LYMPH % 26.9 % (27.0-41.0); MEAN CELL VOLUME 80.3 fl (80.0-94.0); MEAN CORPUSCULAR HGB 26.3 pg (27.0-31.0); MEAN CORPUSCULAR HGB CONC 32.7 g/dl (33.0-37.0); MEAN PLATELET VOLUME 9.6 fl (9.6-12.3); MONO # 0.9 10*3/uL (0.1-1.0); MONO % 7.5 % (3.0-9.0); NEUT # 7.8 10*3/uL (2.3-7.9); NEUT % 62.7 % (47.0-73.0); PLATELET COUNT AUTOMATED 299 10*3/uL (130-400); RED BLOOD COUNT 4.87 10*6/uL (4.50-5.90); RED CELL DISTRI WIDTH 14.3 % (0-14.5); WHITE BLOOD COUNT 12.5 10*3/uL (4.8-10.8)
[2023-06-01 23:24] LABS: ACT PARTIAL THROMBO TIME 25.2 SECONDS (20.0-32.1)
[2023-06-01 23:36] LABS: ALKALINE PHOSPHATASE 91 U/L (46-116); BUN 11 mg/dl (9-23); CHLORIDE 106 mmol/L (98-107); LIPASE 35 U/L (12-53); POTASSIUM 3.2 mmol/L (3.4-5.1); SGPT/ALT 15 U/L (10-49); TOTAL PROTEIN 6.9 gm/dL (6.0-8.0)
[2023-06-02] MEDS ORDERED: PREDNISONE50 MG PO (00:14)
[2023-06-02] MEDS ORDERED: AMOX-CLAV 875-1 EACH PO (00:14)
== END 2023-06-02 00:27 | disposition home or self-care (01) ==
LOC: ED 22:28
PROVIDERS: Internal Medicine
DX: J18.9 Pneumonia, unspecified organism (principal); I10 Essential (primary) hypertension; K21.9 Gastro-esophageal reflux disease without esophagitis; Z91.040 Latex allergy status; Z88.8 Allergy status to other drugs, medicaments and biological substances; Z98.890 Other specified postprocedural states; F17.200 Nicotine dependence, unspecified, uncomplicated; Z20.822 Contact with and (suspected) exposure to COVID-19

== ENCOUNTER 2025-06-28 08:59 | Emergency (ER) | payer BC ==
[~2025-06-28] VITALS: Ht 172.7 cm; Wt 133.4 kg
[~2025-06-28 08:59] MED LIST changes: +AMOX-CLAV 875-1 EACH PO; +PREDNISONE50 MG PO
[2025-06-28 09:08] VITALS: BP 138/88
[2025-06-28] MEDS ORDERED: TRIAMCINOLONE430 GM TD (09:18)
[2025-06-28] MEDS ORDERED: PREDNISONE20 M1 PO (09:18)
== END 2025-06-28 09:35 | disposition home or self-care (01) ==
LOC: ED 08:59
DX: L25.9 Unspecified contact dermatitis, unspecified cause (principal); R21 Rash and other nonspecific skin eruption; I10 Essential (primary) hypertension; K21.9 Gastro-esophageal reflux disease without esophagitis; F17.210 Nicotine dependence, cigarettes, uncomplicated; Z98.890 Other specified postprocedural states; Z90.49 Acquired absence of other specified parts of digestive tract; Z91.040 Latex allergy status